=== PATIENT | female | born 1990 | race Caucasian/White ===

== ENCOUNTER 2020-05-18 21:34 | Emergency (ER) | payer OTHER ==
[~2020-05-18] VITALS: Ht 170.2 cm; Wt 83.9 kg
[2020-05-18 23:26] VITALS: BP 133/67
== END 2020-05-18 23:23 | disposition home or self-care (01) ==
LOC: ER 21:34
DX: R05 Cough (principal); Z20.828 Contact with and (suspected) exposure to other viral communicable diseases; R06.02 Shortness of breath